=== PATIENT | female | born 1995 | race Caucasian/White ===

== ENCOUNTER 2017-05-07 23:45 | Emergency (ER) | payer OTHER ==
[~2017-05-07] VITALS: Ht 152.4 cm; Wt 56.5 kg
[~2017-05-07 23:45] MED LIST: AMPH1TAB36 PO; MACR100C PO
[2017-05-08 00:08] VITALS: BP 123/78; PULSE 103; RESP 18; TEMP 98.7; O2SAT 99
[2017-05-08] MEDS ORDERED: ADDE20 PO (00:19)
[2017-05-08] MEDS ORDERED: AUGM875T3 PO (02:19)
--- NOTE | 2017-05-08 02:20 | PD ---
HPI Chief Complaint: ENT Complaint Time Seen by Provider: 02:13 Travel History International Travel<30 days: No Contact w/Intl Traveler<30days: No Traveled to known affect area: No History of Present Illness HPI The patient is a 22-year-old female that was seen on the for a sore throat. Apparently, this was strep positive on the strep screen and she was put on penicillin. She has now completed the penicillin course. The patient states she started getting right ear pain today, "on the inside of the ear" and not on the outside part of the ear. She denies any fever. She denies any ear drainage. PFSH Past Medical History ADHD: Yes Autoimmune Disease: Yes Cardiovascular Problems: No Diminished Hearing: No Gastrointestinal Disorders: No Genitourinary: No Musculoskeletal: No Neurologic: No Psychiatric: Yes (ADHD) Respiratory: No Immunizations Current: Yes ?: Not Past Surgical History Other Surgery: No Social History Alcohol Use: No Tobacco Use: Yes (04/08 PPD) Substance Use: No Allergies-Medications (Allergen,Severity, Reaction): Coded Allergies: erythromycin base (Verified Allergy, Severe, 05/08/17) sulfisoxazole (Verified Allergy, Severe, 05/08/17) Reported Meds & Prescriptions Reported Meds & Active Scripts Active Reported Adderall (Amphetamine-Dextroamphetamine) 20 Mg Tab 20 Mg PO DAILY Avoid late evening doses. Space doses at least 4 to 6 hours if more than once/day dosing. Review of Systems Except as stated in HPI: all other systems reviewed are Neg Physical Exam Narrative GENERAL: The patient is alert, oriented 3 in slight apparent distress with her right ear discomfort. Her vital signs are normal except for heart rate of 103. I see the patient her heart rate is in the mid 80s. SKIN: Focused skin assessment warm/dry. HEAD: Atraumatic. Normocephalic. EYES: Pupils equal and round. No scleral icterus. No injection or drainage. ENT: No nasal bleeding or discharge. Mucous membranes pink and moist. The left tympanic membrane and canal are normal. The right canal is normal but the right tympanic membrane is slightly red. It is minimally distorted. No fluid level was seen at this time. NECK: Trachea midline. No JVD. There is no meningismus present. CARDIOVASCULAR: Regular rate and rhythm. No murmur appreciated. RESPIRATORY: No accessory muscle use. Clear to auscultation. Breath sounds equal bilaterally. GASTROINTESTINAL: Abdomen soft, non-tender, nondistended. Hepatic and splenic margins not palpable. MUSCULOSKELETAL: No obvious deformities. No clubbing. No cyanosis. No edema. NEUROLOGICAL: Awake and alert. No obvious cranial nerve deficits. Motor grossly within normal limits. Normal speech. PSYCHIATRIC: Appropriate mood and affect; insight and judgment normal. Data Data Last Documented VS Vital Signs Date Time Temp Pulse Resp B/P (MAP) Pulse Ox O2 Delivery O2 Flow Rate FiO2 05/08/17 00:08 98.7 103 18 123/78 (93) 99 MDM Medical Decision Making Medical Screen Exam Complete: Yes Emergency Medical Condition: Yes Medical Record Reviewed: Yes Differential Diagnosis Otitis externa, otitis media, serous otitis media, eustachian tube blockage Narrative Course The patient appears to have a right otitis media. She is allergic to erythromycin and sulfa drugs and she will be put on Augmentin 875 twice daily for 10 days. She is to follow-up with her [address] [place] [address] physician. Diagnosis Primary Impression: Acute right otitis media Additional Instructions: The pill is one tablet twice daily for 10 days. If you continue to have right ear pain you will likely need a different antibiotic. Follow-up with your [facility] physician next week. Med/Other Pt SpecificInfo: Prescription(s) given Scripts Amoxicillin-Clavulanate (Augmentin) 875-125 Mg Tab 1 TAB PO BID for Infection for 10 Days, #20 TAB 0 Refills Prov: Burke Vizcaino MD 05/08/17 Disposition: 01 DISCHARGE HOME Condition: Stable Burke Vizcaino MD May 08, 2017 02:20
[2017-05-08] MEDS ORDERED: AMOXICILLIN/CLAVULANATE K 875 MG TAB PO ONE (02:30)
[2017-05-08 02:31] VITALS: BP 132/74
== END 2017-05-08 02:33 | disposition home or self-care (01) ==
LOC: PHED 23:45
DX: H66.91 Otitis media, unspecified, right ear (principal); F90.9 Attention-deficit hyperactivity disorder, unspecified type; F17.200 Nicotine dependence, unspecified, uncomplicated
CPT/HCPCS: 99283